=== PATIENT | female | born 1985 | race American Indian/Alaskan Native ===

== ENCOUNTER 2017-03-02 09:54 | Emergency (ER) | payer MEDICAID ==
--- NOTE | 2017-03-02 10:31 | Emergency Department Report ---
Stated Complaint: SYNCOPE - HPI History of Present Illness: 23-year-old female past medical history iron deficiency anemia, Crohn's brought in by ambulance from transfusion center. Patient experienced syncopal episode this morning before iron transfusion. EMS brought the scene and brought patient to hospital. Patient is awake alert and oriented 3 state she feels weak. As per patient she had brief loss of consciousness and woke up to medical staff assessing her in transfusion center this morning - ROS Review of Systems: Iron deficiency anemia, Crohn's disease - Exam Physical Exam: Heart S1-S2, lungs clear MSE screening note: Focused history and physical exam performed. Due to findings the following was ordered: Screening Assessment/Plan/Differential Dx: Syncopal episode, possible symptomatic anemia 1- This initial assessment/diagnostic orders/clinical plan/ treatment(s) is/are subject to change based on pt's health status, clinical progression and re- assessment by fellow clinical providers in the ED. Further treatment and workup at subsequent clinical provers discretion. Patient/guardians urged not to elope from ED as their condition may be serious if not clinically assessed and managed. 2-basic labs, EKG, UA 3-patient to be seen in the main ED 4-although patient is requesting that M medically clear her so she can return to clinic as soon as possible as patient syncopized that can be many causes therefore patient requires more extensive workup and observation ED Disposition for MSE Condition: Stable
[2017-03-02 11:24] LABS: Basophils % (Auto) 0.8 % (0.0-1.8); Hemoglobin 10.9 gm/dl (10.1-14.3); Mean Corpuscular HGB Conc 31 % (30-34); Mean Corpuscular Volume 82 fl (79-97); Platelet Count 359 K/mm3 (140-440); Red Blood Count 4.26 M/mm3 (3.65-5.03); Red Cell Distribution Width 16.2 % (13.2-15.2); White Blood Count 6.5 K/mm3 (4.5-11.0)
[2017-03-02 11:25] LABS: Mean Corpuscular Hemoglobin 26 pg (28-32)
[2017-03-02 11:41] LABS: Anion Gap 17 mmol/L; Blood Urea Nitrogen 9 mg/dL (7-17); Calcium 8.6 mg/dL (8.4-10.2); Carbon Dioxide 23 mmol/L (22-30); Chloride 102.4 mmol/L (98-107); Creatine Kinase 47 units/L (30-135); Glucose 100 mg/dL (65-100); Potassium 3.1 mmol/L (3.6-5.0); Sodium 139 mmol/L (137-145)
[2017-03-02] MEDS ORDERED: ZOFRAN IV ONE ×2 (17:42→19:50)
[2017-03-02] MEDS ORDERED: NACL 0.9% 1000 ML 1,000 ML IV ONE ×2 (17:42)
--- NOTE | 2017-03-02 17:47 | Emergency Department Report ---
ED Syncope HPI - General Chief Complaint: Syncope Stated Complaint: SYNCOPE Time Seen by Provider: 03/02/17 17:36 Source: patient, family, EMS Exam Limitations: no limitations - History of Present Illness Initial Comments: 32 years old female history of thalassemia and crohns disease. She stated that she went to an outpatient iron infusion and even before the infusion was started , she passed out patient blood pressure 85/47. Patient denied any other symptoms. Timing/Prior Episodes: no prior history, single episode today Precipitating Factors: Positive: none Context: sitting Loss of Consciousness: no loss of consciousness Current Symptoms: back to normal - Related Data Allergies/Adverse Reactions: Allergies No Known Allergies Allergy (Unverified 01/27/17 10:45) Home Medications: Ambulatory Orders Ondansetron [Zofran TAB] 4 mg PO Q8HR PRN #20 tablet 08/18/15 oxyCODONE /ACETAMINOPHEN [Percocet 5/325] 1 tab PO Q6HR PRN #20 tablet 08/18/15 ED Review of Systems ROS: Stated complaint: SYNCOPE Other details as noted in HPI Comment: All other systems reviewed and negative Constitutional: denies: chills, diaphoresis ENT: denies: ear pain, throat pain Respiratory: denies: cough, orthopnea, shortness of breath, SOB with exertion Cardiovascular: denies: chest pain, palpitations Gastrointestinal: denies: abdominal pain, nausea, vomiting Neurological: denies: headache, weakness ED Past Medical Hx - Past Medical History Hx Asthma: No Hx HIV: No Additional medical history: CROHNS. ANEMIA. OVARIAN CYSTS - Surgical History Additional Surgical History: COLON SURGERY - Social History Smoking Status: Current Every Day Smoker Substance Use Type: Marijuana - Medications Home Medications: Home Medications Medication Instructions Recorded Confirmed Last Taken Type Ondansetron [Zofran TAB] 4 mg PO Q8HR PRN #20 tablet 08/18/15 Unknown Rx oxyCODONE /ACETAMINOPHEN [Percocet 1 tab PO Q6HR PRN #20 tablet 08/18/15 Unknown Rx 5/325] ED Physical Exam - General Limitations: No Limitations General appearance: alert, in no apparent distress - Head Head exam: Present: atraumatic, normocephalic - Eye Eye exam: Present: normal appearance, PERRL, EOMI Pupils: Present: normal accommodation - ENT ENT exam: Present: normal exam, normal orophraynx, mucous membranes dry, TM's normal bilaterally - Neck Neck exam: Present: normal inspection, full ROM. Absent: tenderness, meningismus, lymphadenopathy - Respiratory Respiratory exam: Present: normal lung sounds bilaterally. Absent: respiratory distress, wheezes, rales, rhonchi, stridor, decreased breath sounds, prolonged expiratory - Cardiovascular Cardiovascular Exam: Present: regular rate, normal rhythm, normal heart sounds - GI/Abdominal GI/Abdominal exam: Present: soft, normal bowel sounds. Absent: distended, tenderness, guarding, rebound, rigid, mass, bruit, pulsatile mass - Extremities Exam Extremities exam: Present: normal inspection, normal capillary refill - Back Exam Back exam: Present: normal inspection. Absent: CVA tenderness (R), CVA tenderness (L) - Neurological Exam Neurological exam: Present: alert, oriented X3, CN II-XII intact - Skin Skin exam: Present: warm, dry ED Course Vital Signs 03/02/17 10:24 Temperature 98.4 F Pulse Rate 78 Respiratory 16 Rate Blood Pressure 87/59 O2 Sat by Pulse 96 Oximetry - Reevaluation(s) Reevaluation #1: 03/02/17 19:49 Patient stated that she is feeling better she asked for pain medicine for her chronic abdominal pain. We will discharge patient after she finished her second liter of fluids, and blood pressure now is 105/69. ED Medical Decision Making - Lab Data Result diagrams: 03/02/17 10:46 03/02/17 10:46 Critical care attestation.: If time is entered above; I have spent that time in minutes in the direct care of this critically ill patient, excluding procedure time. ED Disposition Clinical Impression: Syncope, Hypotension Disposition: DC-01 TO HOME OR SELFCARE Is pt being admited?: No Condition: Stable Instructions: Syncope (ED), Hypotension (ED) Referrals: PRIMARY CARE,MD [Primary Care Provider] - 3-5 Days
[2017-03-02 19:50] LABS: Urine Drugs of Abuse Note Disclamer
[2017-03-02] MEDS ORDERED: MORPHINE IV ONE (19:50)
[2017-03-02 20:06] LABS: Bilirubin,Urine NEG (Negative); Blood,Urine NEG (Negative); Ketones,Urine NEG (Negative); Leukocyte Esterase,Urine NEG (Negative); Mucus,Urine 3+ /HPF; Nitrite,Urine NEG (Negative); Urobilinogen,Urine < 2.0 mg/dL (<2.0)
[2017-03-02 21:25] VITALS: BP 105/66
== END 2017-03-02 21:25 | disposition home or self-care (01) ==
LOC: ED 09:54
DX: R55 Syncope and collapse (principal); I95.89 Other hypotension; F17.200 Nicotine dependence, unspecified, uncomplicated; F12.10 Cannabis abuse, uncomplicated; D64.9 Anemia, unspecified
CPT/HCPCS: 36415; 80048; 80307; 81001; 81025; 82550; 84484; 85025; 87086; 93005; 93010; 96361; 96374; 96375; 96376; 99283; J2270; J2405; J2930; J7030

== ENCOUNTER 2017-10-22 11:23 | Outpatient (CLI) | payer MEDICAID ==
--- NOTE | 2017-10-22 14:34 | Cat Scan Report ---
FINAL REPORT PROCEDURE: CT PELVIS W CON TECHNIQUE: Computerized axial tomography of the pelvis was performed following the IV injection of iodinated nonionic contrast. HISTORY: PELVIS CONGESTION SYNDROME COMPARISON: No prior studies are available for comparison. TECHNICAL QUALITY: Contrast is not visualized on the initial images or the delayed images. Correlation with physical exam recommended to ensure there is no extravasation of contrast. Correlation with injection history also recommended.. FINDINGS: There is no IV contrast visualized on the initial images or the delayed images as described above. This limits the exam significantly. No ascites is seen. Uterus and adnexa show no gross abnormalities. With the absence of IV contrast it would be very difficult to exclude pelvic congestion syndrome. Bowel loops are unremarkable. Urinary bladder is only partially filled and shows no focal abnormality. There is no contrast in the patient's urinary bladder. Multiple calcifications are seen in the lower pelvis which appear to represent phleboliths. No acute bony abnormalities are identified. IMPRESSION: No abnormalities are seen. The study is limited. Despite the report that IV contrast was given I do not see any evidence of IV contrast on the initial or delayed images. Correlation with the injection site recommended to ensure there is not been extravasation of contrast. Correlation with the injection history also recommended. If clinically indicated follow-up CT scan with IV contrast could be obtained.
== END 2017-10-22 11:24 | disposition home or self-care (01) ==
LOC: CT 11:23
PROVIDERS: ATTEND Obstetrics & Gynecology
DX: N94.89 Other specified conditions associated with female genital organs and menstrual cycle (principal); I87.8 Other specified disorders of veins; F17.210 Nicotine dependence, cigarettes, uncomplicated
CPT/HCPCS: 72193; Q9967